=== PATIENT | female | born 1995 | race Two or more races ===

== ENCOUNTER 2018-05-18 12:32 | Emergency (ER) | payer MEDICAID ==
[~2018-05-18] VITALS: Ht 160 cm; Wt 72.7 kg
[~2018-05-18 12:32] MED LIST: CYCL-1 PO; PHEN-716 PO
[2018-05-18 12:38] VITALS: BP 138/88
--- NOTE | 2018-05-18 15:06 | NUR ---
Patient called because she was called x3 and was not in lobby. patient did not notify registration of myself that she was LWOBS. Left a voice message for patient that she can come to ER and be seen at any time.
== END 2018-05-18 15:09 | disposition left against medical advice (07) ==
LOC: ER 12:33
DX: R06.02 Shortness of breath (principal); R05 Cough; R07.9 Chest pain, unspecified; R50.9 Fever, unspecified; R09.89 Other specified symptoms and signs involving the circulatory and respiratory systems; J45.909 Unspecified asthma, uncomplicated; Z53.21 Procedure and treatment not carried out due to patient leaving prior to being seen by health care provider
CPT/HCPCS: 93005

== ENCOUNTER 2020-07-13 06:55 | Day surgery (SDC) | payer OTHER ==
[~2020-07-13] VITALS: Ht 162.6 cm; Wt 79.5 kg
[2020-07-13 07:19] VITALS: BP 140/84
--- NOTE | 2020-07-13 10:05 | NUR ---
contacted MD about Covid result. No new orders. will continue to monitor. Pt waiting for procedure, resp even, reading phone, mother at bedside.
[2020-07-13 10:36] VITALS: BP 129/78
[2020-07-13 10:51] VITALS: BP 121/73
[2020-07-13 11:00] VITALS: BP 135/75
[2020-07-13 11:15] VITALS: BP 128/76
[2020-07-13 11:36] VITALS: BP 140/85
[2020-07-28] MEDS ORDERED: NO HOME MEDS (13:17)
== END 2020-07-13 11:41 | disposition home or self-care (01) ==
LOC: SSTAY O 06:55
PROVIDERS: ATTEND Radiology Diagnostic Radiology
DX: R19.09 Other intra-abdominal and pelvic swelling, mass and lump (principal); J45.909 Unspecified asthma, uncomplicated; K59.00 Constipation, unspecified; Z98.890 Other specified postprocedural states; Z79.899 Other long term (current) drug therapy; Z20.822 Contact with and (suspected) exposure to COVID-19
CPT/HCPCS: 49180; 76942; 87635; C9803

== ENCOUNTER 2020-07-29 05:49 | Day surgery (SDC) | payer OTHER ==
[2020-07-29] VITALS (7 sets, daily range): BP systolic 78–114; BP diastolic 40–77
[~2020-07-29] VITALS: Ht 160 cm; Wt 78.5 kg
[~2020-07-29 05:49] MED LIST changes: -CYCL-1 PO; +NO HOME MEDS; -PHEN-716 PO; +famotidine 20mg tablet PO ONE; +ringers solution, lacted 1,000 ML IV SCH
[2020-07-29] MEDS ORDERED: LIDOcaine 1% 30ml preserv. free vial ONE (06:50)
[2020-07-29] MEDS ORDERED: BUPIVAcaine/PF 2.5 mg/ml (0.25%) 30ml vial ONE (06:51)
[2020-07-29 07:18] LABS: BASOPHILS % (AUTO) 0.5 % (0-1); EOSINOPHILS # (AUTO) 0.3 X10'3 (0-0.9); LYMPHOCYTES # (AUTO) 1.9 X10'3 (1.1-4.8); LYMPHOCYTES % (AUTO) 28.6 % (21-51); MEAN CORPUSCULAR HEMOGLOBIN 24.2 PG (27.0-31.0); MEAN CORPUSCULAR HGB CONC 33.2 g/dL (33.0-36.5); MEAN CORPUSCULAR VOLUME 73.1 FL (78-98); MEAN PLATELET VOLUME 7.5 FL (7.4-10.4); MONOCYTES # (AUTO) 0.7 X10'3 (0-0.9); MONOCYTES % (AUTO) 11.2 % (2-12); NEUTROPHILS # (AUTO) 3.7 X10'3 (1.8-7.7); NEUTROPHILS % (AUTO) 55.7 % (42-75); PRE OP HEMATOCRIT 33.5 % (35.0-45.0); PRE OP HEMOGLOBIN 11.1 g/dL (12.0-16.0); PRE OP PLATELET COUNT 267 X10'3 (140-440); RED BLOOD COUNT 4.58 X10'6 (4.20-5.60); RED CELL DISTRIBUTION WIDTH 14.9 % (11.5-14.5)
[2020-07-29] MEDS ORDERED: propofol inj 20 ML IV ONE (07:24)
[2020-07-29] MEDS ORDERED: midazolam 1 mg/ML 2ml injection ONE (07:24)
[2020-07-29] MEDS ORDERED: fentaNYL/PF 50MCG/1 ML 2ML syringe ONE (07:24)
[2020-07-29] MEDS ORDERED: sevoflurane 250ml liquid IH ONE (07:28)
[2020-07-29] MEDS ORDERED: morphine 4 MG/ML inj SYRINge IV PRN (07:30)
[2020-07-29] MEDS ORDERED: ondansetron/PF 4mg/2ml inj IV PRN (07:30)
[2020-07-29] MEDS ORDERED: proCHLORperazine 10 MG/2 ml inj IV PRN (07:30)
[2020-07-29] MEDS ORDERED: morphine 2 MG/ML inj. syringe IV PRN (07:30)
[2020-07-29] MEDS ORDERED: meperidine/PF 25mg/ml syringe IV PRN ×3 (07:30)
[2020-07-29] MEDS ORDERED: ringers solution, lacted 1,000 ML IV SCH (07:30)
[2020-07-29 07:36] LABS: HCG SERUM QL NEGATIVE
[2020-07-29] MEDS ORDERED: ceFAZolin 1000mg inj ONE ×2 (07:37)
[2020-07-29] MEDS ORDERED: dexamethasone sod phosphate 4mg/ml inj. ONE (07:40)
[2020-07-29] MEDS ORDERED: ondansetron/PF 4mg/2ml inj ONE (08:00)
== END 2020-07-29 09:05 | disposition home or self-care (01) ==
LOC: PAS 05:49
PROVIDERS: ATTEND Surgery
DX: R19.09 Other intra-abdominal and pelvic swelling, mass and lump (principal); N80.3 Endometriosis of pelvic peritoneum; J45.909 Unspecified asthma, uncomplicated; Z98.890 Other specified postprocedural states; Z79.899 Other long term (current) drug therapy; Z88.6 Allergy status to analgesic agent; Z80.8 Family history of malignant neoplasm of other organs or systems
CPT/HCPCS: 27048; 36415; 82948; 84703; 85025; 87426; J0690; J1100; J2001; J2250; J2405; J2704; J3010; J3490; J7120; A4215; A4618; A6258; A7000

== ENCOUNTER 2022-09-10 14:33 | Emergency (ER) | payer MEDICAID, OTHER ==
[~2022-09-10] VITALS: Ht 160 cm; Wt 69.0 kg
[~2022-09-10 14:33] MED LIST changes: -famotidine 20mg tablet PO ONE; -ringers solution, lacted 1,000 ML IV SCH
[2022-09-10 15:10] VITALS: BP 130/86
[2022-09-10 16:07] LABS: CLARITY,URINE CLEAR (Clear); COLOR,URINE YELLOW (Yellow); GLUCOSE, URINE NEGATIVE (Neg); KETONES,URINE 15 mg/dl (Neg); LEUKOCYTE ESTERASE ,URINE NEGATIVE (Neg); NITRITES, URINE NEGATIVE (Neg); OCCULT BLOOD,URINE NEGATIVE (Neg); PROTEIN,URINE TRACE mg/dl (Neg); URINE HCG NEGATIVE (NEG); UROBILINOGEN,URINE 0.2 E.U/dL (0.2-1.0)
[2022-09-10 16:14] LABS: UA COLLECTION TYPE CLN CATCH MIDSTREAM
[2022-09-10 16:16] LABS: BACTERIA,URINE 3+ /HPF (Neg); MUCUS STRANDS FEW /LPF (Neg); RBC,URINE 0-2 /HPF (0-2); SQUAMOUS EPITHELIAL CELL,UR MANY /LPF (FEW)
--- NOTE | 2022-09-10 16:16 | NUR ---
REJECTING THE URINE FOR CULTURE
[2022-09-10] MEDS ORDERED: ondansetron 4mg rapidly disintigrating tab PO ONE (16:38)
[2022-09-10] MEDS ORDERED: normal saline 1000ml 1,000 ML IV ONE (16:45)
[2022-09-10 16:48] LABS: BASOPHILS % (AUTO) 0.4 % (0-1); EOSINOPHILS # (AUTO) 0.1 X10'3 (0-0.9); EOSINOPHILS % (AUTO) 1.7 % (0-6); HEMOGLOBIN 12.2 g/dl (12.0-16.0); LYMPHOCYTES # (AUTO) 1.1 X10'3 (1.1-4.8); LYMPHOCYTES % (AUTO) 16.1 % (21-51); MEAN CORPUSCULAR HEMOGLOBIN 25.1 PG (27.0-31.0); MEAN CORPUSCULAR HGB CONC 32.9 g/dL (33.0-36.5); MEAN CORPUSCULAR VOLUME 76.2 FL (78-98); MEAN PLATELET VOLUME 7.6 FL (7.4-10.4); MONOCYTES # (AUTO) 0.5 X10'3 (0-0.9); MONOCYTES % (AUTO) 7.3 % (2-12); NEUTROPHILS # (AUTO) 5.2 X10'3 (1.8-7.7); NEUTROPHILS % (AUTO) 74.5 % (42-75); PLATELET COUNT 234 X10'3 (140-440); RED BLOOD COUNT 4.86 X10'6 (4.20-5.60); WHITE BLOOD COUNT 6.9 X10'3 (4.5-11.0)
[2022-09-10 17:01] LABS: ALANINE AMINOTRANSFERASE 16 U/L (12-78); ALBUMIN 3.7 G/DL (3.4-5.0); ALBUMIN/GLOBULIN RATIO 0.9 (1.1-1.5); ALKALINE PHOSPHATASE 83 IU/L (46-116); ANION GAP 14 (8-16); ASPARTATE AMINO TRANSFERASE 18 U/L (10-37); BILIRUBIN,TOTAL 0.4 MG/DL (0.1-1.0); BLOOD UREA NITROGEN 12 MG/DL (7-18); BUN/CREATININE RATIO 19.4 (10.0-20.0); CALCIUM 8.8 MG/DL (8.5-10.1); CHLORIDE 102 MMOL/L (99-107); CREATININE 0.62 MG/DL (0.40-0.90); GLUCOSE 83 MG/DL (70-104); LIPASE 83 U/L (73-393); POTASSIUM 3.5 MMOL/L (3.5-5.1); SODIUM 141 MMOL/L (135-145); TOTAL CARBON DIOXIDE 24.9 MMOL/L (24-32); TOTAL PROTEIN 7.9 G/DL (6.4-8.2); eGFR > 90 ML/MIN
[2022-09-10] MEDS ORDERED: ONDA4TAB12 PO (17:49)
== END 2022-09-10 17:58 | disposition left against medical advice (07) ==
LOC: ER 14:35
DX: K52.9 Noninfective gastroenteritis and colitis, unspecified (principal)
CPT/HCPCS: 36415; 80053; 81001; 81025; 83690; 85025; 96360; 99283; J7030; 99284

== ENCOUNTER 2024-03-15 11:51 | Outpatient (CLI) | payer BC ==
[~2024-03-15 11:51] MED LIST changes: +ONDA-243 PO
[2024-03-15 12:51] LABS: BASOPHILS # (AUTO) 0.1 X10'3 (0-0.2); BASOPHILS % (AUTO) 0.9 % (0-1); EOSINOPHILS # (AUTO) 0.2 X10'3 (0-0.9); EOSINOPHILS % (AUTO) 3.1 % (0-6); HEMATOCRIT 34.5 % (35.0-45.0); HEMOGLOBIN 11.4 g/dl (12.0-16.0); LYMPHOCYTES # (AUTO) 2.2 X10'3 (1.1-4.8); LYMPHOCYTES % (AUTO) 27.5 % (21-51); MEAN CORPUSCULAR HEMOGLOBIN 25.4 PG (27.0-31.0); MEAN CORPUSCULAR HGB CONC 33.1 g/dL (33.0-36.5); MEAN CORPUSCULAR VOLUME 76.6 FL (78-98); MEAN PLATELET VOLUME 8.3 FL (7.4-10.4); MONOCYTES # (AUTO) 0.7 X10'3 (0-0.9); MONOCYTES % (AUTO) 8.9 % (2-12); NEUTROPHILS # (AUTO) 4.8 X10'3 (1.8-7.7); NEUTROPHILS % (AUTO) 59.6 % (42-75); PLATELET COUNT 306 X10'3 (140-440); RED CELL DISTRIBUTION WIDTH 14.4 % (11.5-14.5)
[2024-03-15 14:09] LABS: ALANINE AMINOTRANSFERASE 21 U/L (12-78); ALBUMIN 3.6 G/DL (3.4-5.0); ALBUMIN/GLOBULIN RATIO 0.9 (1.1-1.5); ALKALINE PHOSPHATASE 56 IU/L (46-116); ANION GAP 9 (8-16); ASPARTATE AMINO TRANSFERASE 16 U/L (10-37); BILIRUBIN,TOTAL 0.3 MG/DL (0.1-1.0); BLOOD UREA NITROGEN 9 MG/DL (7-18); CALCIUM 8.6 MG/DL (8.5-10.1); CHLORIDE 105 MMOL/L (99-107); CHOL/HDL RATIO 2.4 (0.00-4.99); CHOLESTEROL 126 MG/DL (0-200); FREE T4 (FREE THYROXINE) 0.89 NG/DL (0.73-1.40); GLUCOSE 89 MG/DL (70-104); HDL CHOLESTEROL 53 MG/DL (35-60); LDL CHOLESTEROL 63 MG/DL (50-100); POTASSIUM 3.7 MMOL/L (3.5-5.1); SODIUM 140 MMOL/L (135-145); TOTAL CARBON DIOXIDE 26.2 MMOL/L (24-32); TOTAL PROTEIN 7.5 G/DL (6.4-8.2); TRIGLYCERIDES 85 MG/DL (20-135); eGFR > 90 ML/MIN
[2024-03-15 14:13] LABS: % IRON SATURATION 10 % (11-46); IRON 48 UG/DL (49-151); TOTAL IRON BINDING CAPACITY 474 UG/DL (259-388)
== END 2024-03-15 23:59 | disposition home or self-care (01) ==
LOC: RAD 11:51
PROVIDERS: ATTEND Nurse Practitioner Family
DX: Z13.220 Encounter for screening for lipoid disorders (principal); Z13.29 Encounter for screening for other suspected endocrine disorder; Z13.1 Encounter for screening for diabetes mellitus; N80.9 Endometriosis, unspecified; R10.2 Pelvic and perineal pain; Z76.89 Persons encountering health services in other specified circumstances; Z86.2 Personal history of diseases of the blood and blood-forming organs and certain disorders involving the immune mechanism
CPT/HCPCS: 36415; 80053; 80061; 82306; 82607; 82746; 83540; 83550; 84439; 84443; 85025

== ENCOUNTER 2024-03-23 17:33 | Emergency (ER) | payer BC ==
[~2024-03-23] VITALS: Ht 160 cm; Wt 73.3 kg
[2024-03-23 17:40] VITALS: BP 139/77; PULSE 87; TEMP 98.3; O2SAT 99
[2024-03-23 18:00] LABS: STREP A SCREEN NEGATIVE (Neg)
[2024-03-23] MEDS ORDERED: AMOX875T2 PO (18:29)
[2024-03-23] MEDS: dexamethasone sod phosphate 10mg/ml inj PO STA (18:42)
[2024-03-23 18:43] VITALS: RESP 16
[2024-03-23] MEDS: ketorolac trometh 15mg/ml vial 15 MG/ML ML IM ONE (18:43)
== END 2024-03-23 18:51 | disposition home or self-care (01) ==
LOC: ER 17:34
DX: J02.9 Acute pharyngitis, unspecified (principal); J45.909 Unspecified asthma, uncomplicated; Z79.2 Long term (current) use of antibiotics
CPT/HCPCS: 87081; 87880; 96372; 99283; J1100; J1885

== ENCOUNTER 2025-01-28 07:27 | Outpatient (CLI) | payer BC ==
[2025-01-28 07:58] LABS: MEAN PLATELET VOLUME 8.1 FL (7.4-10.4); RED CELL DISTRIBUTION WIDTH 15.0 % (11.5-14.5)
[2025-01-28 08:14] LABS: % IRON SATURATION 10 % (11-46); CHOL/HDL RATIO 2.7 (0.00-4.99); CREATININE 0.72 MG/DL (0.40-0.90); LDL CHOLESTEROL 83 MG/DL (50-100); TOTAL CARBON DIOXIDE 27.2 MMOL/L (24-32); eGFR > 90 ML/MIN
[2025-01-28 09:05] LABS: CRP-CARDIAC RISK 3.170 MG/L
--- NOTE | 2025-01-28 09:33 | RADIOLOGY REPORT ---
INDICATION: ENDOMETRIOSIS TECHNIQUE: Multiple real-time grayscale transabdominal sonographic images along with color and duplex Doppler of the uterus and ovaries were obtained. Patient denied transvaginal exam. COMPARISON: None FINDINGS: The uterus measures 9.8 x 4.3 x 6.4 cm. The endometrial stripe measures 1.7 cm. The right ovary measures 4.7 x 2.1 cm. The left ovary measures 4.9 x 5.2 x 4.4 cm. There is a hypoechoic mass versus complex cystic structure in the left adnexa measuring 3.9 cm. Subsequent color and duplex Doppler interrogation of the ovaries demonstrated symmetric vascular flow to both ovaries, though this does not exclude the possibility of torsion due to the dual blood supply. IMPRESSION: Hypoechoic mass versus complex cystic structure in the left adnexa measuring 3.9 cm. Further evaluation with contrast-enhanced pelvic MRI as clinically indicated.
== END 2025-01-28 23:59 | disposition home or self-care (01) ==
LOC: RAD 07:27
PROVIDERS: ATTEND Nurse Practitioner Family
DX: N85.4 Malposition of uterus (principal); R10.20 Pelvic and perineal pain unspecified side; N83.292 Other ovarian cyst, left side; R51.9 Headache, unspecified; D50.9 Iron deficiency anemia, unspecified; Z13.29 Encounter for screening for other suspected endocrine disorder; Z13.220 Encounter for screening for lipoid disorders; Z13.1 Encounter for screening for diabetes mellitus; E55.9 Vitamin D deficiency, unspecified; Z86.2 Personal history of diseases of the blood and blood-forming organs and certain disorders involving the immune mechanism
CPT/HCPCS: 36415; 76856; 80053; 80061; 82306; 83540; 83550; 84439; 84443; 85025; 85651; 86140; 93976

== ENCOUNTER 2025-02-05 08:13 | Outpatient (CLI) | payer BC ==
[~2025-02-05 08:13] MED LIST changes: +GADOTERATE MEGLUMINE 7.5 MMOL/15 ML VIAL IV ONE
--- NOTE | 2025-02-05 11:40 | RADIOLOGY REPORT ---
CLINICAL HISTORY: ADNEXAL MASS,ENDOMETRIOSIS. TECHNIQUE: Multi sequence multi planar MRI images of the pelvis were obtained prior to and after the uneventful administration of 15 mL Clariscan contrast. COMPARISON: US ULTRASOUND PELVIS W/ORWO DPLX on DOS: 01/28/25 FINDINGS: There is motion artifact on some sequences, limiting evaluation. The uterus is retroverted. Endometrial thickness measures up to 5 mm, within normal limits. Small amount of fluid in the posterior cul-de-sac, likely physiologic. The endocervical canal is mildly prominent, measuring up to 1 cm in greatest dimension. There are two adjacent T1 hyperintense masses in the left ovary measuring up to 1.4 cm and 1.8 cm, respectively with peripheral enhancement but no definite internal enhancement on postcontrast images, possibly hemorrhagic cysts or endometriomas. There are additional bilateral ovarian follicles. No pelvic lymphadenopathy. No other significant findings are seen on MRI. IMPRESSION: 1. Small left ovarian masses demonstrating T1 hyperintense signal on the precontrast images, possibly hemorrhagic cysts or endometriomas. There appears to be some T2 shading on the T2 sequence, which May favor endometriomas. Correlate with clinical findings. 2. Additional findings as described above.
[2025-02-06] MEDS ORDERED: GADOTERATE MEGLUMINE 7.5 MMOL/15 ML VIAL IV ONE (07:01)
== END 2025-02-05 23:59 | disposition home or self-care (01) ==
LOC: MRI 08:13
PROVIDERS: ATTEND Nurse Practitioner Family
DX: N88.8 Other specified noninflammatory disorders of cervix uteri (principal); N94.89 Other specified conditions associated with female genital organs and menstrual cycle; N80.9 Endometriosis, unspecified; R19.00 Intra-abdominal and pelvic swelling, mass and lump, unspecified site; R93.89 Abnormal findings on diagnostic imaging of other specified body structures
CPT/HCPCS: 72197; A9575